=== PATIENT | female | born 1955 | race Caucasian/White ===

== ENCOUNTER 2018-03-20 12:09 | Outpatient (CLI) | payer OTHER ==
--- NOTE | 2018-03-20 13:50 | CT Report ---
CT PARANASAL SINUSES: 03/20/2018 CLINICAL INDICATION: Pain and pressure. TECHNIQUE: Axial CT images of the paranasal sinuses were obtained without intravenous contrast, following which sagittal and coronal reconstructions were performed. COMPARISON: No previous CT is available for comparison. FINDINGS: There is minimal mucosal thickening in the left side of the sphenoid sinus. Otherwise, the paranasal sinuses are clear. The ostiomeatal units are patent bilaterally. The visualized orbital contents are unremarkable. No osseous destruction is seen. IMPRESSION: MINIMAL SPHENOID MUCOSAL THICKENING. CT DOSE REDUCTION STATEMENT In accordance with CT protocol optimization, one or more of the following dose reduction techniques were utilized for this exam: automated exposure control, adjustment of mA and/or KV based on patient size, or use of iterative reconstructive technique. TD: 03/20/2018 13:49
== END 2018-03-20 12:10 | disposition home or self-care (01) ==
LOC: DI 12:09
PROVIDERS: ATTEND Nurse Practitioner Family
DX: J32.9 Chronic sinusitis, unspecified (principal); R51 Headache
CPT/HCPCS: 70486

== ENCOUNTER 2018-03-20 12:11 | Outpatient (CLI) | payer OTHER ==
--- NOTE | 2018-03-22 12:36 | Mammography Report ---
DIGITAL SCREENING MAMMOGRAM: 03/20/2018 CLINICAL INDICATION: A 62-year-old with family history of breast cancer, history of bilateral implants for screening. TECHNIQUE: Routine CC and MLO projections were obtained of the breasts. Bilateral implant displaced views. COMPARISON: 12/2015, 11/2013, 04/2012 FINDINGS: The breasts again demonstrate scattered fibroglandular densities bilaterally. Bilateral subpectoral saline implants are stable. No suspicious masses, clustered microcalcifications, or regions of architectural distortion are identified. IMPRESSION: BENIGN FINDINGS. RECOMMENDATION: Routine annual screening unless otherwise clinically indicated. BIRADS CATEGORY 2 - Benign findings. STANDARD QUALIFYING STATEMENTS 1. This examination was reviewed with the aid of Computer-Aided Detection (CAD). 2. A negative or benign imaging report should not delay biopsy if clinically suspicious findings are present. Consider surgical consultation if warranted. More than 5% of cancers are not identified by imaging. 3. Dense breasts may obscure an underlying neoplasm. TD: 03/21/2018 20:03
== END 2018-03-20 12:12 | disposition home or self-care (01) ==
LOC: DI 12:11
PROVIDERS: ATTEND Registered Nurse
DX: Z12.31 Encounter for screening mammogram for malignant neoplasm of breast (principal); Z80.3 Family history of malignant neoplasm of breast; Z98.82 Breast implant status
CPT/HCPCS: 77067

== ENCOUNTER 2021-06-07 08:32 | Outpatient (CLI) | payer MEDICARE, OTHER ==
--- NOTE | 2021-06-07 12:37 | Ultrasound Report ---
PROCEDURE: Abdomen Limited INDICATIONS: ELEVATED LFT TECHNIQUE: Real-time focused scanning was performed of the abdomen, with image documentation. COMPARISON: None FINDINGS: The liver demonstrates normal size. The liver demonstrates moderately increased [place], which limits ultrasound sensitivity for detection of masses.7 No gallstones or sludge can be seen. The gallbladder wall does not appear thickened. There is no spec ific pericholecystic fluid. The sonographic Latham's sign is negative. No biliary ductal dilatation is seen. The common bile duct measures 4 mm. The visualized pancreas is within normal limits. There is an 8 mm nonobstructing calculus seen involving the inferior aspect of the right kidney. The visualized right kidney is otherwise unremarkable. IMPRESSION: Fatty liver infiltration The gallbladder demonstrates a normal sonographic appearance. No biliary dilatation is seen. 8 mm nonobstructing right kidney stone incidentally noted. Reviewed by: Ashutosh Garner MD on 06/07/2021 11:36 AM [facility] Approved by: Ashutosh Garner MD on 06/07/2021 11:36 AM [facility] Station ID: [id number]
== END 2021-06-07 08:33 | disposition home or self-care (01) ==
LOC: DI 08:32
PROVIDERS: ATTEND Registered Nurse
DX: K76.0 Fatty (change of) liver, not elsewhere classified (principal)

== ENCOUNTER 2021-06-22 09:55 | Outpatient (CLI) | payer MEDICARE, OTHER ==
[2021-06-22 15:14] LABS: BASOPHILS % (AUTO) 0.6 %; EOSINOPHILS # (AUTO) 0.2 10^3/uL (0.0-0.7); EOSINOPHILS % (AUTO) 2.3 %; HCT - HEMATOCRIT 51.6 % (37.0-47.0); LYMPHOCYTES # (AUTO) 2.7 10^3/uL (1.5-3.5); LYMPHOCYTES % (AUTO) 40.8 %; MEAN CORPUSCULAR HEMOGLOBIN 33.6 pg (27.0-31.0); MEAN CORPUSCULAR HGB CONC 32.9 g/dL (32.0-36.0); MEAN PLATELET VOLUME 10.5 fL (7.9-10.8); MONOCYTES # (AUTO) 0.6 10^3/uL (0.0-1.0); MONOCYTES % (AUTO) 8.6 %; NEUTROPHILS # (AUTO) 3.2 10^3/uL (1.5-6.6); NEUTROPHILS % (AUTO) 47.4 %; PLT - PLATELET COUNT 253 10^3/uL (130-450); RED BLOOD COUNT 5.06 10^6/uL (4.20-5.40); RED CELL DISTRIBUTION WIDTH 12.2 % (12.0-15.0); WHITE BLOOD COUNT 6.7 x10^3/uL (4.8-10.8)
[2021-06-22 17:01] LABS: ALBUMIN 4.5 g/dL (3.2-5.5); ALKALINE PHOSPHATASE 73 IU/L (42-121); ALT ALANINE AMINOTRANSFERASE 30 IU/L (10-60); AST ASPARTATE AMINOTRANSFERASE 26 IU/L (10-42); BILIRUBIN,TOTAL 1.1 mg/dL (0.2-1.0); BUN - BLOOD UREA NITROGEN 15 mg/dL (6-20); CHOL/HDL RATIO 3.2 (<4.4); CHOLESTEROL 263 mg/dL; CREATININE 1.1 mg/dL (0.4-1.0); GAMMA GLUTAMYL TRANSPEPTIDASE 40 IU/L (8-38); GFR - MDRD 49 (>89); HDL CHOLESTEROL 83 mg/dL; LDL CHOLESTEROL,CALCULATED 149 mg/dL; LDL/HDL RATIO 1.8 (<4.4); TOTAL PROTEIN 6.8 g/dL (6.7-8.2); TRIGLYCERIDES 157 mg/dL; VLDL CHOLESTEROL 31 mg/dL
[2021-06-22 17:04] LABS: CALCIUM 9.7 mg/dL (8.5-10.3); CARBON DIOXIDE - CO2 27 mmol/L (21-32); CHLORIDE 110 mmol/L (101-111); GLUCOSE 96 mg/dL (70-100); POTASSIUM 4.5 mmol/L (3.5-5.0); SODIUM 145 mmol/L (135-145)
== END 2021-06-22 09:56 | disposition home or self-care (01) ==
LOC: LAB.S 09:55
PROVIDERS: ATTEND Registered Nurse
DX: E78.2 Mixed hyperlipidemia (principal); D75.1 Secondary polycythemia; R94.5 Abnormal results of liver function studies; K70.0 Alcoholic fatty liver
CPT/HCPCS: 36415; 80053; 80061; 82977; 83721; 85025

== ENCOUNTER 2022-09-13 09:04 | Outpatient (CLI) | payer MEDICARE, OTHER ==
--- NOTE | 2022-09-14 10:32 | Mammography Report ---
BILATERAL DIGITAL SCREENING MAMMOGRAM 3D/2D WITH AUGMENTATION: 09/13/2022 CLINICAL: Routine screening. Family history of breast cancer. Comparison is made to exams dated: 03/20/2018 mammogram, 01/05/2016 mammogram, and 12/24/2013 mammogram - [facility]. There are scattered areas of fibroglandular density in both breasts (category b / 25%-50% glandular t issue). Bilateral breast implants are stable. No significant masses, calcifications, or other findings are seen in either breast. There has been no significant interval change. IMPRESSION: NEGATIVE There is no mammographic evidence of malignancy. A 1 year screening mammogram is recommended. Based on the Tyrer Cuzick model (a risk assessment model) the patients lifetime risk is 6.2% and her 10 year risk is 3.7%. According to the ACR, ACS, and NCCN guidelines, an annual breast MRI exam satish g with mammogram is recommended if the patients lifetime risk is 20% or greater. This exam was interpreted at Station ID: [id number]. NOTE: For mammograms, a report in lay terms will be sent to the patient. Approximately 15% of breast malignancies will not be visualized mammographically. In the management of a palpable breast mass, a negative mammogram must not discourage biopsy of a clinically suspicious lesion. Electronically Signed By: Corinne vázquez/tam:09/13/2022 15:01:00 ACR BI-RADS Category 1: Negative 3341F PARENCHYMAL PATTERN: (A) - The breast(s) demonstrate(s) scattered fibroglandular densities. BI-RADS CATEGORY: (1) - 1 RECOMMENDATION: (ANNUAL) - Recommend routine annual screening mammography. [id number] 1 year screening LATERALITY: (B)
== END 2022-09-13 09:05 | disposition home or self-care (01) ==
LOC: DI.S 09:04
PROVIDERS: ATTEND Registered Nurse
DX: Z12.31 Encounter for screening mammogram for malignant neoplasm of breast (principal); Z80.3 Family history of malignant neoplasm of breast